=== PATIENT | male | born 1975 | race American Indian/Alaskan Native ===

== ENCOUNTER 2021-07-30 12:13 | Emergency (ER) | payer SELFPAY ==
[2021-07-30] MEDS ORDERED: SODIUM CHLORIDE 0.9% 1000 ML 1,000 ML IV ONE (13:16)
[2021-07-30] MEDS ORDERED: ONDANSETRON 4 MG/2 ML INJ IV ONE (13:17)
[2021-07-30] MEDS ORDERED: DICYCLOMINE 10 MG/5 ML ORAL LIQD PO ONE (13:20)
[2021-07-30] MEDS ORDERED: LIDOCAINE VISCOUS 2% 15 ML ORAL LIQD PO ONE (13:22)
[2021-07-30] MEDS ORDERED: ALUM-MAG HYDROXIDE-SIMETHICONE 200-200-20MG/5ML ORAL LIQD 30 ML PO ONE (13:22)
[2021-07-30 13:36] LABS: Basophils # (Auto) 0.1 K/mm3 (0.0-0.1); Basophils % (Auto) 0.8 % (0.0-1.8); Eosinophils # (Auto) 0.1 K/mm3 (0.0-0.4); Eosinophils % (Auto) 1.4 % (0.0-4.3); Hematocrit 50.2 % (35.5-45.6); Hemoglobin 16.9 gm/dl (11.8-15.2); Lymphocytes # (Auto) 2.7 K/mm3 (1.2-5.4); Lymphocytes % (Auto) 33.9 % (13.4-35.0); Mean Corpuscular HGB Conc 34 % (32-34); Mean Corpuscular Volume 83 fl (84-94); Monocytes # (Auto) 0.7 K/mm3 (0.0-0.8); Monocytes % (Auto) 9.2 % (0.0-7.3); Platelet Count 355 K/mm3 (140-440); Red Blood Count 6.08 M/mm3 (3.65-5.03); Red Cell Distribution Width 14.2 % (13.2-15.2)
[2021-07-30 13:58] LABS: Alanine Aminotransferase 62 units/L (7-56); Albumin 4.5 g/dL (3.9-5); BUN/Creatinine Ratio 13; Blood Urea Nitrogen 16 mg/dL (9-20); Calcium 9.8 mg/dL (8.4-10.2); Hemolysis Index 6
[2021-07-30 15:08] LABS: Mucus,Urine 3+ /HPF
[2021-07-30 15:29] LABS: Bilirubin,Urine Negative (Negative); Blood,Urine Negative (Negative); Color,Urine Yellow (Yellow)
--- NOTE | 2021-07-30 15:32 | Emergency Department Report ---
ED General Adult HPI - General Chief complaint: Nausea/Vomiting/Diarrhea Stated complaint: VOMITING/DIARRHEA Time Seen by Provider: 07/30/21 13:06 Source: patient Mode of arrival: Ambulatory Limitations: No Limitations - History of Present Illness Initial comments: 46-year-old black male with no known past medical history presents to the emergency department for 5 to 6-day history of persistent nausea vomiting and diarrhea. He states that he was seen at urgent care for same complaint treated with IV fluids and Zofran and he did feel some better. He was discharged home with prescription for Zofran ODT and Pepcid but he states that he did not get prescriptions filled. He states that nausea vomiting started back several hours after leaving urgent care and has persisted since then. He states that on average he vomits about 3-4 times per day and has diarrhea 2-3 times per day. He states that symptoms are better but have not resolved completely. He denies fever abdominal pain dysuria and penile discharge. Radiation: non-radiation Associated Symptoms: nausea/vomiting. denies: chest pain, cough, fever/chills, headaches, malaise, rash, seizure, shortness of breath, syncope, weakness Treatments Prior to Arrival: other (IV fluids and Zofran) - Related Data Previous Rx's Medication Instructions Recorded Last Taken Type Dicyclomine [Bentyl] 20 mg PO QID PRN #20 tablet 07/30/21 Unknown Rx Ondansetron [Zofran Odt] 4 mg PO Q8HR #12 tab.rapdis 07/30/21 Unknown Rx Allergies Allergy/AdvReac Type Severity Reaction Status Date / Time No Known Allergies Allergy Verified 07/30/21 13:01 ED Review of Systems ROS: Stated complaint: VOMITING/DIARRHEA Other details as noted in HPI Comment: All other systems reviewed and negative Constitutional: no symptoms reported Respiratory: no symptoms reported. denies: cough, shortness of breath Cardiovascular: denies: chest pain, palpitations, dyspnea on exertion, edema, syncope, paroxysmal nocturnal dyspnea Endocrine: denies: no symptoms reported Gastrointestinal: abdominal pain, nausea, vomiting, diarrhea. denies: hematemesis, melena, hematochezia Genitourinary: denies: urgency, dysuria, frequency, hematuria, discharge, testicular pain Musculoskeletal: denies: back pain Skin: denies: rash Neurological: denies: headache, weakness, abnormal gait ED Past Medical Hx - Past Medical History Previous Medical History?: No - Surgical History Past Surgical History?: No - Medications Home Medications: Home Medications Medication Instructions Recorded Confirmed Last Taken Type Dicyclomine [Bentyl] 20 mg PO QID PRN #20 tablet 07/30/21 Unknown Rx Ondansetron [Zofran Odt] 4 mg PO Q8HR #12 tab.rapdis 07/30/21 Unknown Rx ED Physical Exam - General Limitations: No Limitations General appearance: alert, in no apparent distress - Head Head exam: Present: atraumatic, normocephalic - Eye Eye exam: Present: normal appearance. Absent: scleral icterus, conjunctival injection - Neck Neck exam: Present: normal inspection - Respiratory Respiratory exam: Present: normal lung sounds bilaterally. Absent: respiratory distress, wheezes, chest wall tenderness, accessory muscle use - Cardiovascular Cardiovascular Exam: Present: tachycardia, normal heart sounds - GI/Abdominal GI/Abdominal exam: Present: soft, normal bowel sounds. Absent: distended, tenderness, guarding, rebound, rigid - Extremities Exam Extremities exam: Present: normal inspection - Back Exam Back exam: Present: normal inspection, full ROM. Absent: tenderness, CVA tenderness (R), CVA tenderness (L), paraspinal tenderness, vertebral tenderness - Neurological Exam Neurological exam: Present: alert, oriented X3 - Psychiatric Psychiatric exam: Present: normal affect, normal mood - Skin Skin exam: Present: warm, dry, intact ED Course Vital Signs 07/30/21 07/30/21 13:02 16:25 Temperature 98.6 F 98.9 F Pulse Rate 105 H 82 Respiratory 16 18 Rate Blood Pressure 125/92 [Left] Blood Pressure 120/94 [Right] O2 Sat by Pulse 98 98 Oximetry - Reevaluation(s) Reevaluation #1: N/v resolved and patient states that he feels much better. Results reviewed with patient. 07/30/21 15:28 ED Medical Decision Making - Lab Data Result diagrams: 07/30/21 13:22 07/30/21 13:22 - Medical Decision Making 46-year-old black male with no known past medical history presents to the emergency department for 5 to 6-day history of persistent nausea vomiting and diarrhea. He states that he was seen at urgent care for same complaint treated with IV fluids and Zofran and he did feel some better. He was discharged home with prescription for Zofran ODT and Pepcid but he states that he did not get prescriptions filled. He states that nausea vomiting started back several hours after leaving urgent care and has persisted since then. He states that on average he vomits about 3-4 times per day and has diarrhea 2-3 times per day. He states that symptoms are better but have not resolved completely. He denies fever abdominal pain dysuria and penile discharge. Symptoms improved with medications. No gross abnormalities to labs. No tenderness to palpation of the abdomen. Patient will be sent home and treated with Zofran and Bentyl for his symptoms. He was encouraged to follow-up with primary care provider if no improvement or worsening symptoms. He was instructed to return to emergency department if he develop worsening pain fever or any other concerning symptoms. Plan of care was reviewed with patient, and he verbalized understanding of and agreement with. Critical Care Time: No Critical care attestation.: If time is entered above; I have spent that time in minutes in the direct care of this critically ill patient, excluding procedure time. ED Disposition Clinical Impression: Nausea vomiting and diarrhea Disposition: 01 HOME / SELF CARE / HOMELESS Is pt being admited?: No Does the pt Need Aspirin: No Condition: Stable Instructions: Food Choices to Help Relieve Diarrhea, Adult, Nausea and Vomiting, Adult, [id number], Diarrhea, Adult, [id number] Additional Instructions: Eat a BRAT diet (bananas, rice apples, and toast) then advance diet as tolerated. take medications as prescribed. If no improvement or worsening symptoms, follow up with pcp. Prescriptions: Dicyclomine [Bentyl] 20 mg PO QID PRN #20 tablet PRN Reason: Pain, Moderate (4-6) Ondansetron [Zofran Odt] 4 mg PO Q8HR #12 tab.rapdis Referrals: ALTHEA LOCKHART MD [Referring] - 3-5 Days Forms: Work/School Release Form(ED) Time of Disposition: 15:33
[2021-07-30 16:28] VITALS: BP 120/94
== END 2021-07-30 16:31 | disposition home or self-care (01) ==
LOC: ED 12:13
DX: R11.2 Nausea with vomiting, unspecified (principal); R19.7 Diarrhea, unspecified
CPT/HCPCS: 36415; 80053; 81001; 83690; 85025; 96361; 96374; 99283; J2405; J7030; Q0162